=== PATIENT | female | born 1945 | race Caucasian/White ===

== ENCOUNTER → 2018-08-02 | Outpatient (CLI) | payer MEDICARE, BC ==
[2018-08-02 13:34] LABS: Stool Occult Bld Immuno 1 Negative (NEGATIVE)
== END ==
LOC: LAB EV 07:00
PROVIDERS: Student in an Organized Health Care Education/Training Program
DX: Z12.11 Encounter for screening for malignant neoplasm of colon (principal)
CPT/HCPCS: G0328

== ENCOUNTER 2018-12-15 16:28 | Emergency (ER) | payer MEDICARE, BC ==
[~2018-12-15] VITALS: Ht 162.6 cm; Wt 102.1 kg
[2018-12-15] MEDS ORDERED: IBUP600 PO (17:17)
[2018-12-15] MEDS ORDERED: ATOR20 PO (17:17)
[2018-12-15] MEDS ORDERED: Norco 5-325 Ta1 EACH PO (17:38)
[2018-12-15] MEDS ORDERED: Crutch1 EACH MISC (17:45)
== END 2018-12-15 18:00 | disposition home or self-care (01) ==
LOC: ER 16:28
DX: S89.92XA Unspecified injury of left lower leg, initial encounter (principal); X58.XXXA Exposure to other specified factors, initial encounter; Z79.899 Other long term (current) drug therapy
CPT/HCPCS: 29505; 73564; 99283-25; A9270-GY

== ENCOUNTER 2019-04-09 12:29 | Day surgery (SDC) | payer MEDICARE, BC ==
[~2019-04-09] VITALS: Ht 190.5 cm; Wt 99.7 kg
[~2019-04-09 12:29] MED LIST: ATOR20 PO; Crutch1 EACH MISC; ESOM20 PO; IBUP600 PO; LOSARTAN POTASS25 M1 PO; Lipitor20 MG PO; Norco 5-325 Ta1 EACH PO
--- NOTE | 2019-04-09 12:48 | NUR ---
04/09/19 1248 Keyla Nieevs 1 IV ATTEMPT LEFT HAND, VEIN BLEW. SUCCESSFUL IV LEFT FA. PT TOW.
--- NOTE | 2019-04-09 15:24 | NUR ---
04/09/19 1523 Edilma Medina LATE ENTRY----ASSUMMED CARE FOR PATIENT, SHE WAS UP IN RECLINER AND CONVERSING. THE ONLY PAIN SHE ADMITS TO IS THE PAIN IN HER THIGH FROM THE [place]. NO PAIN IN KNEE AND NO NAUSEA. DISCHARGE INSTRUCTIONS WERE DISCUSSED WITH PATIENT. POLAR CARE UNIT INSTRUCTED AND EXPLAINED. ALL QUESTIONS WERE ANSWERED. PATIENT WAS DISCHARGED IN STABLE CONDITION
== END 2019-04-09 15:20 | disposition home or self-care (01) ==
LOC: ORSCSDS 12:29
PROVIDERS: Orthopaedic Surgery
PROC: 0SBD4ZZ Excision of Left Knee Joint, Percutaneous Endoscopic Approach (ICD-10-PCS; principal; 2019-04-09 13:45)
DX: S83.242A Other tear of medial meniscus, current injury, left knee, initial encounter (principal); S83.282A Other tear of lateral meniscus, current injury, left knee, initial encounter; M17.12 Unilateral primary osteoarthritis, left knee; I10 Essential (primary) hypertension; Z79.899 Other long term (current) drug therapy
CPT/HCPCS: J0171; J0690; J1100; J2250; J2405; J2704; J3010; J7120